=== PATIENT | female | born 1945 | race American Indian/Alaskan Native ===

== ENCOUNTER 2017-03-30 09:34 | Emergency (ER) | payer MEDICARE ==
[2017-03-30 09:35] VITALS: BMI 23.1
[2017-03-30 09:52] VITALS: TEMP 98
[2017-03-30] MEDS ORDERED: Sodium Chloride 0.9% 500 ML IV STA (10:44)
[2017-03-30 11:08] LABS: BASO # 0.1 K/uL (0.0-0.2); EOS # 0.1 K/uL (0.0-0.7); EOS % 1.4 % (0.0-4.0); HEMATOCRIT 40.7 % (34.0-47.0); LYMPH # 1.5 K/uL (1.0-4.3); LYMPH % 24.5 % (20.0-40.0); MEAN CELL VOLUME 84.1 fL (81.0-99.0); MEAN CORPUSCULAR HEMOGLOBIN 27.6 pg (27.0-31.0); MEAN CORPUSCULAR HGB CONC 32.8 g/dL (33.0-37.0); MEAN PLATELET VOLUME 7.2 fL (7.2-11.7); MONO # 0.7 K/uL (0.0-0.8); MONO % 11.8 % (0.0-10.0); NRBC % 0.1 % (0.0-2.0); RED CELL DISTRIBUTION WIDTH 12.7 % (11.5-14.5); WHITE BLOOD COUNT 6.2 K/uL (4.8-10.8)
[2017-03-30 11:16] LABS: CHLORIDE 100 mmol/L (98-107); POTASSIUM 3.8 mmol/L (3.6-5.2); SODIUM 138 mmol/L (132-148)
[2017-03-30 11:18] LABS: ALB/GLOB RATIO 1.1 (1.0-2.1); ALKALINE PHOSPHATASE 63 U/L (38-126); AST/SGOT 61 U/L (14-36); BILIRUBIN,TOTAL 0.5 mg/dL (0.2-1.3); BLOOD UREA NITROGEN 14 mg/dL (7-17); CARBON DIOXIDE 26 mmol/L (22-30); GFR AFRICAN-AMERICAN > 60; TOTAL PROTEIN 8.5 g/dL (6.3-8.3)
[2017-03-30 11:19] LABS: ALT/SGPT 47 U/L (9-52); CALCIUM 8.4 mg/dl (8.6-10.4); GLUCOSE,RANDOM 131 mg/dL (65-105)
--- NOTE | 2017-03-30 11:32 | C.PDOC ---
History Of Present Illness 71-year-old female, PMHx includes Hypertension, Hypercholesterolemia, and Depression, presents to the emergency department with complaints of diarrhea. Patient states she has been experiencing watery/non-bloody stools since yesterday, that are associated with abdominal pain, described as crampy sensation. Patient denies vomiting, fevers, recent travel, sick contacts, or any other associated symptoms. No other complaints at this time. Time Seen by Provider: 03/30/17 10:09 Chief Complaint (Nursing): GI Problem History Per: Patient History/Exam Limitations: no limitations Onset/Duration Of Symptoms: Days Current Symptoms Are (Timing): Still Present Severity: Moderate Past Medical History Reviewed: Historical Data, Nursing Documentation, Vital Signs Vital Signs: Last Vital Signs Temp 98 F 03/30/17 09:52 Pulse 88 03/30/17 12:52 Resp 15 03/30/17 12:52 BP 140/82 03/30/17 12:52 Pulse Ox 98 03/30/17 12:52 - Medical History PMH: Depression, HTN, Hypercholesterolemia - [facility] Procedures INTRAOPER CHOLANGIOGRAM (06/28/13) LAPAROSCOPIC CHOLECYSTECTOMY (06/28/13) LAPAROSCOPIC LIVER BIOPSY (06/28/13) PSYCHIAT DRUG THERAP NEC (07/28/12) Family History: States: Unknown Family Hx - Social History Hx Tobacco Use: No Hx Alcohol Use: No Hx Substance Use: No Review Of Systems Except As Marked, All Systems Reviewed And Found Negative. Constitutional: Negative for: Fever, Chills Cardiovascular: Negative for: Chest Pain, Palpitations Gastrointestinal: Positive for: Abdominal Pain, Diarrhea. Negative for: Nausea , Vomiting, Hematochezia Musculoskeletal: Negative for: Back Pain Skin: Negative for: Rash Physical Exam - Physical Exam Appears: Non-toxic, No Acute Distress Skin: Warm, Dry, No Rash Head: Atraumatic, Normacephalic Eye(s): bilateral: Normal Inspection, PERRL Nose: Normal Oral Mucosa: Moist Lips: Normal Appearing Neck: Normal ROM Cardiovascular: Rhythm Regular Respiratory: Normal Breath Sounds, No Accessory Muscle Use Gastrointestinal/Abdominal: Bowel Sounds ((+)), Soft, Tenderness (Mild, periumbilical to left-lower quadrant), No Guarding, No Rebound Back: Normal Inspection, No CVA Tenderness Extremity: Normal ROM, Other (mild tremors of hands b/l) Extremity: Bilateral: Atraumatic Neurological/Psych: Oriented x3, Normal Speech Gait: Steady ED Course And Treatment - Laboratory Results Result Diagrams: 03/30/17 11:02 03/30/17 11:02 O2 Sat by Pulse Oximetry: 99 Medical Decision Making Medical Decision Making: Plan: * CT Abd/Pel * CMP, Lipase * CBC * IVF * Urinalysis * Reassess and Disposition 1315: Pt appears well, Vitals remain stable. Labs and Abd CT reviewed and d/w pt. Plan incl risks and benefits d/w pt who understands and does agree plan. Disposition Counseled Patient/Family Regarding: Diagnosis, Need For Followup, Rx Given - Disposition Disposition: HOME/ ROUTINE Disposition Time: 13:25 Condition: STABLE Additional Instructions: Increase PO fluids ( Gatorade, tea, vit water, leroy pino, clear broth) May have plain rice, bread, apples Return to ER if worse Prescriptions: Phenobarb/Hyoscy/Atropine/Scop [ Tablet] 16.2 mg PO BID #7 tablet Instructions: Gastroenteritis (ED) - Clinical Impression Clinical Impression: Gastroenteritis - Scribe Statement The provider has reviewed the documentation as recorded by the Scribe Maggie Willson All medical record entries made by the Scribe were at my direction and personally dictated by me. I have reviewed the chart and agree that the record accurately reflects my personal performance of the history, physical exam, medical decision making, and the department course for this patient. I have also personally directed, reviewed, and agree with the discharge instructions and disposition.
[2017-03-30] MEDS ORDERED: Iodixanol 320 MG/ML 100 ML BOTTLE IV ONE (11:37)
[2017-03-30 12:18] LABS: RBC URINE 1 /hpf (0-3); URINE BACTERIA FEW (<OCC); URINE BILIRUBIN NEGATIVE (NEGATIVE); URINE BLOOD NEGATIVE (NEGATIVE); URINE COLOR Yellow (YELLOW); URINE GLUCOSE (UA) NORMAL (Normal); URINE KETONE NEGATIVE (NEGATIVE); URINE LEUKOCYTE ESTERASE TRACE Leu/uL (Negative); URINE PROTEIN NEGATIVE (NEGATIVE); URINE UROBILINOGEN NORMAL mg/dL (0.2-1.0); WBC URINE 8 /hpf (0-5)
--- NOTE | 2017-03-30 12:32 | CT ---
PROCEDURE: CT Abdomen and Pelvis with contrast HISTORY: abd pain COMPARISON: None. TECHNIQUE: Contrast dose: 100 cc of Visipaque 320 Radiation dose: Total exam DLP = 860.6 mGy-cm. This CT exam was performed using one or more of the following dose reduction techniques: Automated exposure control, adjustment of the mA and/or kV according to patient size, and/or use of iterative reconstruction technique. FINDINGS: LOWER THORAX: Small opacity is seen at the right middle lobe. LIVER: Mild hepatomegaly and mild diffuse low-attenuation of the liver suggestive of fatty liver. GALLBLADDER AND BILE DUCTS: Status post cholecystectomy. PANCREAS: Unremarkable. No gross lesion or ductal dilatation. SPLEEN: Unremarkable. ADRENALS: Unremarkable. No mass. KIDNEYS AND URETERS: Unremarkable. No hydronephrosis. No solid mass. VASCULATURE: Unremarkable. No aortic aneurysm. BOWEL: Diffuse gastric wall thickening. There is also diffuse small bowel wall thickening. No evidence of bowel obstruction. APPENDIX: No evidence of appendicitis. The appendix is not visualized. PERITONEUM: Unremarkable. No free fluid. No free air. LYMPH NODES: Unremarkable. No enlarged lymph nodes. BLADDER: Unremarkable. REPRODUCTIVE: Unremarkable. BONES: No acute fracture. OTHER FINDINGS: None. IMPRESSION: Diffuse gastric and small bowel wall thickening. Correlate clinically for gastroenteritis. Otherwise no evidence of acute pathology in the abdomen and pelvis.
[2017-03-30 12:52] VITALS: BP 140/82; PULSE 88; RESP 15
[2017-03-30] MEDS ORDERED: Belladonna-Phenobarbital PO STA (13:00)
[2017-03-30 13:25] VITALS: O2SAT 99
== END 2017-03-30 13:49 | disposition home or self-care (01) ==
LOC: C.ER 09:34
DX: K52.9 Noninfective gastroenteritis and colitis, unspecified (principal)
CPT/HCPCS: 74177; 80053; 81001; 82948; 83690; 85025; 96360; 96361; 99283; J7040; Q9967

== ENCOUNTER 2018-03-12 11:30 | Emergency (ER) | payer MEDICARE ==
[2018-03-12 11:31] VITALS: BMI 23.1
[2018-03-12] MEDS ORDERED: Sodium Chloride 0.9% 1,000 ML IV ONE (12:54)
[2018-03-12] MEDS ORDERED: Iohexol 240 (50 ml) PO ONE (12:54)
[2018-03-12] MEDS ORDERED: Sodium Chloride 0.9% 1,000 ML ONE (13:31)
[2018-03-12] MEDS ORDERED: Iohexol 240 (50 ml) ONE (13:32)
[2018-03-12] MEDS ORDERED: Morphine 4 MG/ML VIAL ONE ×2 (13:32→17:14)
[2018-03-12 13:58] LABS: BASO # 0.1 K/uL (0.0-0.2); BASO % 0.9 % (0.0-2.0); EOS # 0.1 K/uL (0.0-0.7); EOS % 1.7 % (0.0-4.0); HEMOGLOBIN 12.9 g/dL (11.0-16.0); LYMPH % 28.8 % (20.0-40.0); MEAN CELL VOLUME 82.2 fL (81.0-99.0); MEAN CORPUSCULAR HEMOGLOBIN 28.1 pg (27.0-31.0); MEAN CORPUSCULAR HGB CONC 34.2 g/dL (33.0-37.0); MEAN PLATELET VOLUME 7.1 fL (7.2-11.7); MONO # 0.6 K/uL (0.0-0.8); MONO % 8.2 % (0.0-10.0); NEUT # 4.1 K/uL (1.8-7.0); NEUT % 60.4 % (50.0-75.0); RBC 4.6 Mil/uL (3.80-5.20); RED CELL DISTRIBUTION WIDTH 15.6 % (11.5-14.5); URINE BILIRUBIN NEGATIVE (NEGATIVE); URINE BLOOD NEGATIVE (NEGATIVE); URINE CLARITY Clear (Clear); URINE COLOR Yellow (YELLOW); URINE GLUCOSE (UA) NORMAL (Normal); URINE LEUKOCYTE ESTERASE NEG Leu/uL (Negative); URINE PROTEIN NEGATIVE (NEGATIVE); URINE UROBILINOGEN NORMAL mg/dL (0.2-1.0); WHITE BLOOD COUNT 6.8 K/uL (4.8-10.8)
[2018-03-12 14:24] LABS: ALB/GLOB RATIO 1.1 (1.0-2.1); ALBUMIN 4.4 g/dL (3.5-5.0); ALT/SGPT 7 U/L (9-52); AST/SGOT 33 U/L (14-36); BLOOD UREA NITROGEN 20 mg/dL (7-17); CALCIUM 10.3 mg/dl (8.6-10.4); GFR AFRICAN-AMERICAN > 60; GFR NON-AFRICAN AMERICAN > 60; LIPASE 197 U/L (23-300)
--- NOTE | 2018-03-12 14:41 | C.PDOC ---
History Of Present Illness 72 year old female presents to the ED for evaluation of left-sided flank pain and left lower quadrant abdominal pain which began 3-4 days ago. She has not taken anything for her symptoms. She denies previous history of similar symptoms as well as nausea, vomiting, and dysuria. Time Seen by Provider: 03/12/18 12:31 Chief Complaint (Nursing): Abdominal Pain History Per: Patient History/Exam Limitations: no limitations Onset/Duration Of Symptoms: Days (3-4) Current Symptoms Are (Timing): Still Present Location Of Pain/Discomfort: LLQ Radiation Of Pain To:: Flank (left) Quality Of Discomfort: "Pain" Associated Symptoms: denies: Nausea, Vomiting, Urinary Symptoms Additional History Per: Patient Past Medical History Reviewed: Historical Data, Nursing Documentation, Vital Signs Vital Signs: Last Vital Signs Temp 98.8 F 03/12/18 18:00 Pulse 60 03/12/18 18:00 Resp 18 03/12/18 18:00 BP 120/78 03/12/18 18:00 Pulse Ox 100 03/12/18 18:00 - Medical History PMH: Asthma, Depression, HTN, Hypercholesterolemia Surgical History: No Surg Hx - [facility] Procedures INTRAOPER CHOLANGIOGRAM (06/28/13) LAPAROSCOPIC CHOLECYSTECTOMY (06/28/13) LAPAROSCOPIC LIVER BIOPSY (06/28/13) PSYCHIAT DRUG THERAP NEC (07/28/12) Family History: States: Unknown Family Hx - Social History Hx Tobacco Use: No Hx Alcohol Use: No Hx Substance Use: No - Immunization History Hx Tetanus Toxoid Vaccination: No Hx Influenza Vaccination: Yes Hx Pneumococcal Vaccination: Yes Review Of Systems Gastrointestinal: Positive for: Abdominal Pain (left lower quadrant ). Negative for: Nausea, Vomiting Genitourinary: Negative for: Dysuria Musculoskeletal: Positive for: Other (left-sided flank pain ) Physical Exam - Physical Exam Appears: Non-toxic, No Acute Distress Skin: Normal Color, Warm, Dry Head: Atraumatic, Normacephalic Eye(s): bilateral: Normal Inspection Oral Mucosa: Moist Neck: Supple Chest: Symmetrical, No Deformity, No Tenderness Cardiovascular: Rhythm Regular, No Murmur Respiratory: Normal Breath Sounds, No Rales, No Rhonchi, No Wheezing Gastrointestinal/Abdominal: Soft, Tenderness (to left lower quadrant ), No Guarding, No Rebound Back: Other (left flank tenderness ) Extremity: Normal ROM, Capillary Refill (less than 2 seconds ) Neurological/Psych: Oriented x3, Normal Speech, Normal Cognition Gait: Steady ED Course And Treatment - Laboratory Results Result Diagrams: 03/12/18 13:49 03/12/18 13:49 ECG: Interpreted By Me, Viewed By Me ECG Rhythm: Sinus Rhythm Interpretation Of ECG: Normal Sinus Rhythm at rate 91bpm. Normal intervals. Normal axis. No ST/T wave abnormalities. Rate From EC O2 Sat by Pulse Oximetry: 98 (on RA ) Pulse Ox Interpretation: Normal Medical Decision Making Medical Decision Making: Assessment: abdominal pain Plan: * bloodwork * urinalysis * EKG * CT A/P * Morphine IVP * Zofran IVP * Pepcid IVP * IV Fluids * reassess and disposition Progress: Bloodwork, urinalysis, EKG, CT A/P ordered and reviewed. Morphine IVP, Zofran IVP, Pepcid IVP and IV fluids administered Patient states improvement and discharged home to follow up with pmd in 2 days. . Disposition - Disposition Referrals: Naomi Scott MD [Staff Provider] - Disposition: HOME/ ROUTINE Disposition Time: 17:38 Condition: IMPROVED Additional Instructions: follow up with your doctor in 2 days call to make an appointment take medications as prescribed return to ER if symptoms worsens or progress Prescriptions: traMADol [Ultram] 50 mg PO TID PRN #12 tab PRN Reason: Pain, Moderate (4-7) Instructions: Acute Abdomen (Belly Pain) Forms: [facility] (Palestinian), General Discharge Instructions Print Language: TAMAZIGHT - Clinical Impression Clinical Impression: Abdominal pain - Scribe Statement The provider has reviewed the documentation as recorded by the Scribe (Melonie Orantes) Provider Attestation: All medical record entries made by the Scribe were at my direction and personally dictated by me. I have reviewed the chart and agree that the record accurately reflects my personal performance of the history, physical exam, medical decision making, and the department course for this patient. I have also personally directed, reviewed, and agree with the discharge instructions and disposition.
--- NOTE | 2018-03-12 16:14 | CT ---
PROCEDURE: CT Abdomen and Pelvis with contrast HISTORY: Abdominal pain COMPARISON: 03/30/2017 TECHNIQUE: CT scan of the abdomen and pelvis was performed without administration of intravenous contrast. Oral contrast was administered. Coronal and sagittal reformatted images were obtained. Contrast dose: Radiation dose: Total exam DLP = 679.90 mGy-cm. This CT exam was performed using one or more of the following dose reduction techniques: Automated exposure control, adjustment of the mA and/or kV according to patient size, and/or use of iterative reconstruction technique. FINDINGS: LOWER THORAX: There is linear scarring in the right middle lobe. The lung bases are clear. LIVER: Normal in size. No gross lesion or ductal dilatation. GALLBLADDER AND BILE DUCTS: Surgically absent. PANCREAS: Normal in size without calcifications or ductal dilatation. SPLEEN: Normal in size. ADRENALS: Mild thickening without discrete nodule. KIDNEYS AND URETERS: Both kidneys are normal in size without nephrolithiasis. No hydronephrosis. VASCULATURE: No aortic aneurysm. BOWEL: There is severe circumferential mural thickening in the gastric antrum with luminal narrowing. There is also mild thickening of the pyloric wall. The small bowel loops are normal in caliber. The colon is essentially decompressed. No bowel dilatation or obstruction. APPENDIX: Normal appendix. PERITONEUM: No free fluid. No free air. LYMPH NODES: No enlarged lymph nodes. BLADDER: Well distended and normal in appearance. REPRODUCTIVE: The uterus is normal in size and deviated to the right. BONES: No acute fracture. There is severe degenerative disc disease at L5-S1. OTHER FINDINGS: None. IMPRESSION: 1. Severe circumferential mural thickening in the gastric antrum without evidence for gastric outlet obstruction. The differential considerations include nonspecific focal gastritis and neoplasm. Endoscopic correlation is advised. 2. No other significant abnormality.
[2018-03-12] MEDS ORDERED: Morphine 4 MG/ML VIAL IV ONE (16:59)
[2018-03-12 18:33] VITALS: BP 120/78; PULSE 60; RESP 18; TEMP 98.8
[2018-03-13 09:15] VITALS: O2SAT 98
--- NOTE | 2018-03-13 21:54 | CARD ---
APPROVED REPORT EKG Measurement Heart [id number] <Conclusion> Normal sinus rhythm Normal ECG
== END 2018-03-12 18:05 | disposition home or self-care (01) ==
LOC: C.ER 11:30 → EDBD 11:30 → C.ER 18:05
DX: R10.9 Unspecified abdominal pain (principal); I10 Essential (primary) hypertension; E78.00 Pure hypercholesterolemia, unspecified
CPT/HCPCS: 74176; 80053; 81001; 83690; 84484; 85025; 87086; 93005; 96361; 96374; 96375; 96376; 99285; J2270; J2405; J7040; Q9966

== ENCOUNTER 2018-03-23 11:26 | Emergency (ER) | payer MEDICARE ==
[2018-03-23 11:26] VITALS: BMI 23.1
--- NOTE | 2018-03-23 13:14 | C.PDOC ---
History Of Present Illness 72 y/o female presents to the ER complaining of pain to the left sacroiliac area. Patient was seen in [facility] ER on 03/12/18. Patient had labs and CT Scan- Abd & Pelv. which showed thickening of the gastric antrum. Patient reports that she had an upper endoscopy 1 month ago by an unknown GI. Time Seen by Provider: 03/23/18 12:40 Chief Complaint (Nursing): Back Pain History Per: Patient History/Exam Limitations: no limitations Onset/Duration Of Symptoms: Days Current Symptoms Are (Timing): Still Present Severity: Moderate Past Medical History Reviewed: Historical Data, Nursing Documentation, Vital Signs Vital Signs: Last Vital Signs Temp 98.5 F 03/23/18 13:37 Pulse 90 03/23/18 13:37 Resp 21 03/23/18 13:37 BP 117/76 03/23/18 13:37 Pulse Ox 99 03/23/18 14:07 - Medical History PMH: Asthma, Depression, HTN, Hypercholesterolemia Surgical History: Cholecystectomy - [facility] Procedures INTRAOPER CHOLANGIOGRAM (06/28/13) LAPAROSCOPIC CHOLECYSTECTOMY (06/28/13) LAPAROSCOPIC LIVER BIOPSY (06/28/13) PSYCHIAT DRUG THERAP NEC (07/28/12) Family History: States: No Known Family Hx - Social History Hx Tobacco Use: No Hx Alcohol Use: No Hx Substance Use: No - Immunization History Hx Tetanus Toxoid Vaccination: No Hx Influenza Vaccination: Yes Hx Pneumococcal Vaccination: Yes Review Of Systems Except As Marked, All Systems Reviewed And Found Negative. Constitutional: Negative for: Fever, Chills Musculoskeletal: Positive for: Other (left sacroiliac pain ) Neurological: Negative for: Weakness, Numbness Physical Exam - Physical Exam Appears: No Acute Distress, Other (flat affect, bizarre) Skin: Normal Color, Warm, Dry, No Rash (left sacroiliac region) Head: Atraumatic, Normacephalic Eye(s): bilateral: Normal Inspection Nose: Normal Oral Mucosa: Moist Neck: Supple Chest: Symmetrical Cardiovascular: Rhythm Regular Respiratory: Normal Breath Sounds Back: Other (mild tenderness to left sacroiliac region) Neurological/Psych: Oriented x3, Normal Speech ED Course And Treatment O2 Sat by Pulse Oximetry: 99 Medical Decision Making Medical Decision Making: L sacroiliac discomfort, same as 03/09/18 ice packs as allergic to NSAIDS outpatient f/u for GI for gastric antrum "severe thickening" noted 03/[address] Abd/Pelvis Disposition Doctor Will See Patient In The: Office Counseled Patient/Family Regarding: Studies Performed, Diagnosis - Disposition Referrals: Naomi Scott MD [Staff Provider] - Jose Ramires [Staff Provider] - Disposition: HOME/ ROUTINE Disposition Time: 13:14 Condition: GOOD Additional Instructions: L lower back pain, ice packs 1/2 hour per hour, nothing hot Tylenol 1000 mg every 6 hours as needed Gastric Antrum "severely increased size" Please call Dr. Ramires- [employer]- to make a follow-up appointment. Take Pepcid 20 mg 9AM and 9PM Instructions: Peptic Ulcers, Sacroiliac Joint Pain, Stomach Cancer Forms: [facility] (Croatian) - Clinical Impression Clinical Impression: Sacroiliac (ligament) sprain
[2018-03-23 13:37] VITALS: BP 117/76; PULSE 90; RESP 21; TEMP 98.5
[2018-03-23 13:50] VITALS: O2SAT 99
== END 2018-03-23 13:42 | disposition home or self-care (01) ==
LOC: C.ER 11:26
DX: S33.6XXA Sprain of sacroiliac joint, initial encounter (principal); X58.XXXA Exposure to other specified factors, initial encounter; E78.00 Pure hypercholesterolemia, unspecified; I10 Essential (primary) hypertension